=== PATIENT | male | born 1995 | race Native Hawaiian/Other Pacific Islander ===

== ENCOUNTER 2017-10-05 17:48 | Emergency (ER) | payer BC ==
[~2017-10-05] VITALS: Ht 185.4 cm; Wt 121.6 kg
[2017-10-05 17:59] VITALS: TEMP 98.4
[2017-10-05 19:19] VITALS: BP 113/74
== END 2017-10-05 19:34 | disposition home or self-care (01) ==
LOC: ED 17:48
DX: S91.101A Unspecified open wound of right great toe without damage to nail, initial encounter (principal); W34.010A Accidental discharge of airgun, initial encounter
CPT/HCPCS: 90471; 90715; 96372; 99283; J0696